=== PATIENT | male | born 1955 | race Caucasian/White ===

== ENCOUNTER 2020-04-06 07:26 | Outpatient (CLI) | payer OTHER, SELFPAY ==
[2020-04-11 09:23] LABS: Reference Lab Test Result Negative
== END 2020-04-06 07:27 | disposition home or self-care (01) ==
LOC: ANHLAB 07:28
PROVIDERS: PCP Internal Medicine; Visit Provider Internal Medicine
DX: Z20.828 Contact with and (suspected) exposure to other viral communicable diseases (principal)
CPT/HCPCS: 36415; 86769

== ENCOUNTER 2020-11-27 13:20 | Outpatient (CLI) | payer OTHER, SELFPAY ==
[2020-12-01 13:09] LABS: NIL 0.02 IU/mL; Quantiferon TB Plus, 1T NEGATIVE (NEGATIVE); TB1-NIL 0.09 IU/mL; TB2-NIL 0.17 IU/mL
== END 2020-11-27 13:21 | disposition home or self-care (01) ==
PROVIDERS: PCP Internal Medicine; Visit Provider Internal Medicine
DX: Z11.1 Encounter for screening for respiratory tuberculosis (principal)
CPT/HCPCS: 36415; 86480

== ENCOUNTER → 2022-08-22 08:07 | Outpatient (CLI) | payer MEDICARE, OTHER, SELFPAY ==
--- NOTE | ~2022-08-22 | MR_ITS ---
MRI of the lumbar spine Clinical History: Back pain Technique: Axial T2-weighted images, and sagittal T1-weighted, T2-weighted, STIR, and T2 fat-sat imag es were acquired. Findings: There is posterior fusion from L4 to L5, with bilateral rods and transpedicular screws in p lace. There is a disc fusion device at the L4-L5 disc space. Minimal grade 1 retrolisthesis of L3 ove r L4 noted. No acute fracture seen. L4 laminectomy defects are present. No suspicious bone marrow sig nal abnormality identified. At L1-L2, there is no disc bulge or herniation. No spinal canal stenosis or neural foraminal narrowin g. At L2-L3, there is minimal disc bulge and minimal facet joint hypertrophy. No ladarius spinal canal sten osis. There is mild to moderate right neural foraminal narrowing. Left neural foramen preserved. At L3-L4, disc bulge and facet arthropathy result in moderate thecal sac compression. There is modera te left neural foraminal narrowing and mild right neural foraminal narrowing. At L4-L5, no disc bulge or herniation evident. No spinal canal stenosis. Neural foramina are poorly e valuated due to streak artifact. At L5-S1, there is no disc bulge or herniation. There is facet arthropathy. No spinal canal stenosis. Probable severe right neural foraminal narrowing and [id number] left neural foraminal narrowin g. Paravertebral soft tissues are otherwise unremarkable. Impression: Posterior fusion from L4 to L5 with associated postoperative changes, as detailed above. Multifactorial moderate thecal sac compression L3-L4, with bilateral neural foraminal narrowing, as d etailed above. Bilateral neural foraminal narrowing at L5-S1, as detailed above, right worse than left. Reviewed, dictated and finalized at location M. [employer]ICE [employer] SPECIALIST Impression: Posterior fusion from L4 to L5 with associated postoperative changes, as detail ed above. Multifactorial moderate thecal sac compression L3-L4, with bilateral neural for aminal narrowing, as detailed above. Bilateral neural foraminal narrowing at L5-S1, as detailed above, right worse t [place] left.
--- NOTE | ~2022-08-22 | CT_ITS ---
Non-contrast Head CT History: Headache Technique: Axial non-contrast imaging of the brain was performed. Dose reduction technique was used on this scan by utilizing automated exposure control and iterative reconstruction technique. The dose -length product (DLP) was 599.57 mGy-cm. Findings: There is no evidence of intracranial hemorrhage, mass lesion, or acute infarct. Brain par enchyma appears normal. The ventricles and subarachnoid spaces are normal in size. The calvarium ap pears normal. The visualized paranasal sinuses and mastoid air cells are clear. Impression: No significant abnormality seen. Reviewed, dictated and finalized at location . [employer] M[employer]ER Impression: No significant abnormality seen.
== END ==
PROVIDERS: PCP Internal Medicine; Visit Provider Internal Medicine
DX: R51.9 Headache, unspecified (principal); M54.50 Low back pain, unspecified; Z98.1 Arthrodesis status; M48.07 Spinal stenosis, lumbosacral region
CPT/HCPCS: 70450; 72148

== ENCOUNTER → 2022-08-22 08:17 | Outpatient (CLI) | payer MEDICARE, OTHER, SELFPAY ==
--- NOTE | ~2022-08-22 | XR_ITS ---
AP and lateral views of the right hip Clinical history: Pain Findings: No acute fracture or dislocation is seen. Osseous alignment is anatomic.] Hip and SI joint appear unremarkable. Prostate gland radiation seeds noted. Lumbar spinal fixation hardware is partial ly imaged. Soft tissues are unremarkable. Impression: No significant abnormality is seen. Reviewed, dictated and finalized at [facility]. OR [employer] Impression: No significant abnormality is seen.
--- NOTE | ~2022-08-22 | XR_ITS ---
Left Knee Technique: AP, lateral, and sunrise views were obtained. Clinical History: Pain Findings: No acute fracture or dislocation is seen. Old, healed fibular shaft fracture deformity part ially imaged. Osseous alignment is anatomic. Joint spaces are preserved without degenerative or erosi ve change. Soft tissues are unremarkable. No joint effusion is seen. Impression: No acute abnormality seen. Old, healed fibular shaft fracture is partially imaged. Reviewed, dictated and finalized at location M. PPER COLOR Impression: No acute abnormality seen. Old, healed fibular shaft fracture is partially imaged.
== END ==
PROVIDERS: PCP Internal Medicine; Visit Provider Internal Medicine Gastroenterology
DX: R26.2 Difficulty in walking, not elsewhere classified (principal); R52 Pain, unspecified
CPT/HCPCS: 73502; 73564

== ENCOUNTER 2022-08-23 08:17 | Outpatient (CLI) | payer MEDICARE, OTHER, SELFPAY ==
--- NOTE | ~2022-08-23 | DEXA_ITS ---
Bone Density Report Name: DHIRAJ MAR Age: 67 Sex: Male Ethnicity: White Date of : 1955 Indication: cancer; Referring Provider: BRITNI SEPULVEDA Study: Bone densitometry was performed. Exam Date: August 23, 2022 Accession number: [id number] Bone Density: Region BMD T-score Z-score Classification AP Spine(L2, L3, L4) 1.036 -0.7 0.1 Normal Femoral Neck (Left) 0.731 -1.5 -0.4 Osteopenia Total Hip (Left) 0.953 -0.5 0.0 Normal Femoral Neck (Right) 0.747 -1.3 -0.3 Osteopenia Total Hip (Right) 0.915 -0.8 -0.3 Normal Total Hip Mean 0.934 -0.7 -0.2 Normal World Health Organization criteria for BMD impression classify patients as: Normal (T-score at or above -1.0), Osteopenia (T-score between -1.0 and -2.5), or Osteoporosis (T-score at or below -2.5). 10-year Fracture Risk: FRAX not reported because: Treated for osteoporosis Clinical Information Provided by Patient: Is being treated for osteoporosis Has used the following medications: Fosamax (i.e. alendronate), Vitamin D, Calcium Has the following medical conditions: Cancer, hypothyroidism Patient maximum height was 70.5 Drinks caffeinated beverages Impression: The patient has low bone mass, based on the Left Femoral Neck T-score. Discussion: It is important to ask patients whether they are taking their medications and to encourage continued and appropriate compliance with their osteoporosis therapies to reduce fracture risk. It is also important to review their risk factors and encourage appropriate calcium and vitamin D intakes, exercise, fall prevention and other lifestyle measures. Follow-Up: Consider repeating this study in 2 years to reassess this patient's status, or sooner if there is some new clinical indication. Reported by: DEVYN on 08/23/2022 9:18:00 AM. Reviewed, dictated and finalized at location APb ARCINIEGA
[2022-08-23 08:59] LABS: Basophils Percent Auto 0.7 % (0.2-1.2); Eosinophils Absolute Auto 0.2 K/mm3 (0-0.3); Eosinophils Percent Auto 3.8 % (0-4.4); Hematocrit 42.8 % (42.0-52.0); Immature Granulocyte Absolute 0.01 K/mm3 (0.00-0.031); Immature Granulocyte Percent A 0.2 % (0-0.5); Lymphocytes Absolute Auto 1.17 K/mm3 (0.9-3.2); Lymphocytes Percent Auto 26.1 % (18.3-44.2); Mean Corpuscular HGB Conc 32.7 g/dl (32-36); Mean Corpuscular Hemoglobin 31.9 pg (26-34); Mean Corpuscular Volume 97.5 fl (80-100); Mean Platelet Volume 9.1 fl (7.4-10.4); Monocytes Absolute Auto 0.4 K/mm3 (0.1-0.6); Monocytes Percent Auto 9.6 % (2.6-8.5); Neutrophils Absolute Auto 2.7 K/mm3 (1.3-6.7); Neutrophils Percent Auto 59.6 % (45.5-73.1); Platelet Count Result 218 k/mm3 (150-375); Red Blood Count 4.39 M/mm3 (4.6-6.20); White Blood Count 4.5 K/mm3 (4.5-10.0)
[2022-08-23 09:11] LABS: Alanine Aminotransferase 22 U/L (6-50); Albumin Level 4.3 g/dL (3.5-5.1); Alkaline Phosphatase 49 U/L (38-126); Anion Gap 4 mmol/L (8-16); Aspartate Amino Transferase 30 U/L (17-59); Blood Urea Nitrogen 21 mg/dL (9-20); Calcium 8.7 mg/dL (8.4-10.2); Carbon Dioxide 35 mmol/L (22-30); Chloride 104 mmol/L (98-107); Cholesterol 179 mg/dL (0-200); Estimated Glomerular Filt Rate > 60; Glucose 95 mg/dL (65-110); HDL Direct 71 mg/dL; INR 1.3; Potassium 4.9 mmol/L (3.4-5.0); Prothrombin Time 15.7 Seconds (11.1-14.7); Sodium 143 mmol/L (137-145); Triglycerides 76 mg/dL (<150)
[2022-08-23 09:22] LABS: LDL Cholesterol Direct 78 mg/dL
[2022-08-23 09:41] LABS: Prostate Specific Antigen < 0.1 ng/mL (< OR = 4.0); Thyroid Stimulating Hormone 0.312 uIU/mL (0.465-4.680)
[2022-08-23 09:47] LABS: Free T4 Free Thyroxine 1.37 ng/mL (0.78-2.19)
[2022-08-27 12:11] LABS: Zinc 57 mcg/dL (60-130)
== END 2022-08-23 08:18 | disposition home or self-care (01) ==
PROVIDERS: PCP Internal Medicine; Visit Provider Internal Medicine
DX: C61 Malignant neoplasm of prostate (principal); E03.9 Hypothyroidism, unspecified; I10 Essential (primary) hypertension; K90.9 Intestinal malabsorption, unspecified; M85.80 Other specified disorders of bone density and structure, unspecified site; R53.83 Other fatigue; K76.9 Liver disease, unspecified; N40.0 Benign prostatic hyperplasia without lower urinary tract symptoms; Z79.83 Long term (current) use of bisphosphonates; M85.852 Other specified disorders of bone density and structure, left thigh; M85.851 Other specified disorders of bone density and structure, right thigh
CPT/HCPCS: 36415; 77080; 80053; 80061; 82248; 82306; 82525; 82607; 82746; 84153; 84439; 84443; 84630; 85025; 85610

== ENCOUNTER 2022-11-09 07:37 | Outpatient (CLI) | payer MEDICARE, OTHER, SELFPAY ==
--- NOTE | ~2022-11-09 | MR_ITS ---
MRI of the right hip Clinical history: Pain Technique: Coronal T1-weighted, T2-weighted, and proton-density fat-sat images, and axial T1-weighted and proton-density fat-sat images were acquired through the pelvis. Coronal T2-weighted images and c oronal, axial, and sagittal proton-density fat-sat images were acquired through the right hip. 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 There is a very subtle linear T1 hypointensity in the superior femoral head, consistent with small subchondral insufficienc y fracture. There is prominent stranding or edema in the right femoral head extending to the right fe moral neck. No other fracture identified. Remaining bone marrow signals in the pelvis and proximal fe barker are unremarkable. There is minimal degenerative change of the left hip joint. Small right hip joint effusion is present. Probable degenerative tearing of the anterior acetabular l abrum. No muscle atrophy or edema about the right hip or pelvis. Visualized tendons are intact. IMPRESSION: Probable subtle subchondral insufficiency fracture of the superior right femoral head, with prominent surrounding marrow edema. Underlying diffuse high-grade chondral malacia the right hip joint and small right hip joint effusion . Minimal degenerative change of the left hip. Probable degenerative tearing of the anterior right acetabular labrum. Reviewed, dictated and finalized at location . IMPRESSION: Probable subtle subchondral insufficiency fracture of the superior right femora l head, with prominent surrounding marrow edema. Underlying diffuse high-grade chondral malacia the right hip joint and small ri ght hip joint effusion. Minimal degenerative change of the left hip. Probable degenerative tearing of the anterior right acetabular labrum.
--- NOTE | ~2022-11-09 | MR_ITS ---
EXAMINATION: MR knee LT wo con DATE: 11/09/2022 08:57 INDICATION: Left knee pain TECHNIQUE: Magnetic resonance imaging (MRI) of the left knee was performed without intravenous contra st. Sequences included axial PD-weighted FS FSE, coronal PD-weighted FSE and PD-weighted FS FSE, sagi ttal PD-weighted FSE, and sagittal T2-weighted FS FSE. COMPARISON: Left knee 08/22/2022. FINDINGS: Medial compartment: Oblique undersurface tear of the junction of the posterior horn and body, with extension of a menisca l flap into the inferior medial joint recess. Apical tear of the posterior horn. Diffuse moderate car tilage thinning. Mild osteophytosis. Lateral compartment: Mild diffuse cartilage thinning. Mild osteophytosis. Patellofemoral compartment: Cartilage and retinacula intact. Mild osteophytosis. Ligaments and tendons: ACL, PCL, MCL, and LCL are intact. Remaining flexor and extensor tendons are intact. Fluid: Small volume joint fluid. Osseous/other: No suspicious focal or diffuse marrow signal. IMPRESSION: 1. Oblique undersurface tear of the medial meniscus at the junction of the posterior horn and body, w ith a displaced meniscal flap. Additional apical tear of the posterior horn also noted. 2. Small joint effusion. 3. Tricompartmental osteoarthritis. Reviewed, dictated and finalized at location K. IMPRESSION: 1. Oblique undersurface tear of the medial meniscus at the junction of the post erior horn and body, with a displaced meniscal flap. Additional apical tear of the posterior horn also noted. 2. Small joint effusion. 3. Tricompartmental osteoarthritis.
== END 2022-11-09 07:38 | disposition home or self-care (01) ==
PROVIDERS: PCP Internal Medicine; Visit Provider Physician Assistant
DX: M25.451 Effusion, right hip (principal); M25.462 Effusion, left knee; M17.12 Unilateral primary osteoarthritis, left knee; S83.242A Other tear of medial meniscus, current injury, left knee, initial encounter; X58.XXXA Exposure to other specified factors, initial encounter
CPT/HCPCS: 73721